=== PATIENT | female | born 1995 | race Two or more races ===

== ENCOUNTER 2018-02-10 21:40 | Emergency (ER) | payer OTHER ==
[2018-02-10 22:02] VITALS: BP 130/65
--- NOTE | 2018-02-10 22:06 | UC ---
Eye Complaint HPI - HPI Summary HPI Summary: 22 yo female c/o sudden left blurry vision on left eye, woke up with it 2 days ago. Lost her contacts few days ago crying and now has acute pain upon horizontal eye movement, denies d/c, erythema. - History of Current Complaint Chief Complaint: UCEye Stated Complaint: EYE INJURY/ BLURRED VISION Time Seen by Provider: 02/10/18 21:51 Hx Obtained From: Patient ?: Yes Onset/Duration: Sudden Onset, Still Present Timing: Constant Severity Initially: Moderate Severity Currently: Moderate - Allergies/Home Medications Allergies/Adverse Reactions: Allergies Allergy/AdvReac Type Severity Reaction Status Date / Time No Known Allergies Allergy Verified 02/10/18 22:02 Home Medications: Home Medications NK [No Home Medications Reported] 02/10/18 [History Confirmed 02/10/18] PMH/Surg Hx/FS Hx/Imm Hx Previously Healthy: Yes Review of Systems Constitutional: Negative Skin: Negative Eyes: Blurred Vision - left eye, see HPI ENT: Negative Respiratory: Negative Cardiovascular: Negative Gastrointestinal: Negative Genitourinary: Negative Motor: Negative Neurovascular: Negative Musculoskeletal: Negative Neurological: Negative Psychological: Negative All Other Systems Reviewed And Are Negative: Yes Physical Exam Triage Information Reviewed: Yes Appearance: Well-Appearing Vital Signs Reviewed: Yes Eye Exam: Other Eyes: Positive: Conjunctiva Clear, Other: - intact peripheral vision, left eye blurry vision, NO diplopia, NO conjunctival erythema or d/c, mild swelling of the lacrimal gland upon mild eversion of left upper lid. Negative: Conjunctiva Inflamed, Discharge ENT Exam: Normal Respiratory Exam: Normal Respiratory: Positive: Lungs clear Cardiovascular Exam: Normal Abdominal Exam: Normal Abdomen Description: Positive: Soft Skin Exam: Normal Eye Complaint Course/Dx - Course Course Of Treatment: Eye pain upon horizontal movement is suspicious for left lateral upper lid inflammation/swelling. Recommended to go to ER for slit light exam for acute left eye blurry vision to examine behind the lens and into the retina - Differential Dx/Diagnosis Differential Diagnosis/HQI/PQRI: Other Provider Diagnoses: blurry vision Discharge - Sign-Out/Discharge Documenting (check all that apply): Discharge/Admit/Transfer - Discharge Plan Condition: Stable Disposition: HOME Patient Education Materials: Blurred Vision (ED) Additional Instructions: please go to ER [facility] for acute blurry vision - Billing Disposition and Condition Condition: STABLE Disposition: HOME
== END 2018-02-10 22:11 | disposition home or self-care (01) ==
LOC: UCEAST 21:40
DX: H53.8 Other visual disturbances (principal)
CPT/HCPCS: 99212; G0463

== ENCOUNTER 2018-02-12 14:30 | Emergency (ER) | payer OTHER ==
[2018-02-12] MEDS ORDERED: methylPREDNISolone 125 MG* 2 ML VIAL IV ONE (14:48)
[2018-02-12 15:08] LABS: ABS Basophils 0.1 10^3/ul (0-0.2); ABS Eosinophils 0.3 10^3/ul (0-0.6); ABS Monocytes 0.8 10^3/ul (0-0.8); ABS Neutrophils 6.2 10^3/ul (1.5-7.7); ABS Nucleated RBC 0 10^3/ul; Eosinophil % 2.6 % (0-6); Hematocrit 38 % (35-47); Hemoglobin 12.7 g/dl (12.0-16.0); Lymphocyte % 29.1 % (25-47); Mean Corpuscular HGB Conc 34 g/dl (31-36); Mean Corpuscular Hemoglobin 27 pg (27-31); Mean Corpuscular Volume 79 fL (80-97); Mean Platelet Volume 7.7 um3 (7.4-10.4); Nucleated Red Blood Cells % 0; Platelet Count 348 10^3/ul (150-450); Red Blood Count 4.75 10^6/ul (4.0-5.4); Red Cell Distribution Width 17 % (10.5-15); White Blood Count 10.3 10^3/ul (3.5-10.8)
[2018-02-12 15:21] LABS: INR 0.9 (0.77-1.02)
[2018-02-12 15:30] LABS: EGFR Non-African American 97.3 (>60)
[2018-02-12] MEDS ORDERED: methylPREDNISolone SOD SUCC* 1,000 MG in NS 0.9% 100 ML* 100 ML IVPB ONE ×3 (15:48→18:55)
[2018-02-12 15:50] LABS: Urine Appearance Clear; Urine Blood 1+ (Negative); Urine Color Colorless; Urine Ketones Negative (Negative); Urine Protein Negative (Negative); Urine Specific Gravity 1.003 (1.010-1.030); Urine Urobilinogen Negative (Negative)
[2018-02-12] MEDS ORDERED: Gadoteridol* (CONTRAST) 279.3 MG/ML 10 ML IV ONE (15:52)
--- NOTE | 2018-02-12 16:32 | RAD ---
Indication: Loss of vision in left eye for 2 days. Image sequences: Sagittal and axial T1, axial T2, FLAIR, diffusion and susceptibility weighted images of the brain were obtained. 11 mL of ProHance was injected and postcontrast axial and coronal and sagittal T1-weighted postcontrast images were obtained. Ventricular structures are midline. No midline shift is noted. The extra-axial spaces are unremarkable. There is no evidence of intracranial mass or hemorrhage. No other high or low signal lesions are identified. The postcontrast images demonstrates no evidence of abnormally enhancing lesions. No orbital lesions are noted. Extraocular muscles and optic nerves are unremarkable. The sella turcica is unremarkable. Diffusion-weighted images demonstrates no restriction of diffusion. Susceptibility weighted images demonstrates no evidence of susceptibility artifact. Paranasal sinuses demonstrates minimal mucosal thickening of the ethmoid air cells on the left. The remainder of the paranasal sinuses are unremarkable. IMPRESSION: No intracranial lesion is identified. No abnormally enhancing lesions are noted. Minimal ethmoid sinusitis on the left.
[2018-02-12] MEDS ORDERED: methylPREDNISolone SOD SUCC* 1000 MG ML VIAL ONE (17:58)
[2018-02-12 19:44] VITALS: BP 114/71
--- NOTE | 2018-02-12 23:59 | ED ---
Doron Bush Natalie, scribed for Celia Cullen MD on 02/12/18 at 1536 . Throat Pain/Nasal Congestion - HPI Summary HPI Summary: The pt is a 22 y/o F presenting to the ED c/o pain in left eye for two weeks and loss of vision for three days. She has been seeing Dr. Rawls, eyeglass frames inspector, this morning. She has told to come in for an MRI. LNMP: one month ago - states she is not . - History of Current Complaint Chief Complaint: EDEyeProblem Time Seen by Provider: 02/12/18 14:40 Hx Obtained From: Patient Onset/Duration: Sudden Onset, Lasting Weeks - starting two weeks ago, Still Present, Worse Since - three days ago Severity: Moderate Cough: None - Allergies/Home Medications Allergies/Adverse Reactions: Allergies Allergy/AdvReac Type Severity Reaction Status Date / Time No Known Allergies Allergy Verified 02/12/18 14:36 PMH/Surg Hx/FS Hx/Imm Hx Opthamlomology History: Denies: Hx Legally Blind EENT History: Denies: Hx Deafness Infectious Disease History: No Infectious Disease History: Denies: Traveled Outside the [place] in Last 30 Days - Family History Known Family History: Positive: Cardiac Disease, Diabetes, Other - high cholesterol - Social History Alcohol Use: None Substance Use Type: Reports: None Smoking Status (MU): Never Smoked Tobacco Review of Systems Negative: Fever Eyes: Other - eye pain, loss of vision All Other Systems Reviewed And Are Negative: Yes Physical Exam - Summary Physical Exam Summary: Appearance: Well-appearing, moderate pain distress, Well-nourished Skin: Warm, color reflects adequate perfusion Head: Normal Head/Face inspection, atraumatic Eyes: Conjunctiva clear, extraoccular movement painful but intact ENT: Normal inspection Neck: Supple, no nodes, no JVD. Respiratory: Lungs clear, Normal breath sounds, no respiratory distress Cardio: RRR, No murmur, pulses normal, brisk capillary refill Abdomen: soft, nontender Bowel sounds: present Musculoskeletal: Strength Intact/ ROM intact. No calf tenderness. No edema. Psychological: Normal Neuro: Alert, muscle tone normal, no focal deficit Triage Information Reviewed: Yes Vital Signs On Initial Exam: Initial Vitals Temp Pulse Resp BP Pulse Ox 99.6 F 95 16 120/82 98 02/12/18 14:33 02/12/18 14:33 02/12/18 14:33 02/12/18 14:33 02/12/18 14:33 Vital Signs Reviewed: Yes Diagnostics - Vital Signs Vital Signs Temp Pulse Resp BP Pulse Ox 02/12/18 14:33 99.6 F 95 16 120/82 98 - Laboratory Result Diagrams: 02/12/18 14:57 02/12/18 14:57 Lab Statement: Any lab studies that have been ordered have been reviewed, and results considered in the medical decision making process. - Radiology Brain MRI Xray Interpretation: No Acute Changes - No intracranial lesion is identified. No abnormally enhancing lesions are noted. ED physician has reviewed this report. Radiology Interpretation Completed By: Radiologist EENT Course/Dx - Course Course Of Treatment: Pt's medications reviewed during this visit. Brain MRI is unremarkable - no sign of stroke or brain tumor. I spoke with Dr. Last, neurologist, and Dr. Lu, the pt's PCP concerning the pt's symptoms. Pt received infusions in ED. Pt will be discharged home under stable conditions. Pt is agreeable with this plan. Discharge - Discharge Plan Condition: Stable Disposition: HOME Patient Education Materials: Optic Neuritis (ED) Referrals: Arvind Last MD [Medical Doctor] - 1 Day Additional Instructions: You were given 1gram of solumedrol by IV infusion today in the ER. Your MRI did not show any acute abnormalities. Have definite follow up with Dr. Last as directed tomorrow for your next infusion. Return to the ER if you have new or worsening symptoms. - Billing Disposition and Condition Condition: STABLE Disposition: HOME The documentation as recorded by the Doron busch Natalie accurately reflects the service I personally performed and the decisions made by me, Celia Cullen MD.
== END 2018-02-12 19:40 | disposition home or self-care (01) ==
LOC: ED 14:30
DX: H46.9 Unspecified optic neuritis (principal); H57.12 Ocular pain, left eye
CPT/HCPCS: 36415; 70553; 80053; 80307; 81003; 81015; 83605; 84702; 85025; 85610; 85652; 85730; 87086; 96374; 96375; 99282; A9579; J2930